=== PATIENT | male | born 1960 | race Caucasian/White ===

== ENCOUNTER 2017-10-08 02:39 | Inpatient (IN) | payer MEDICAID ==
[2017-10-08] VITALS (13 sets, daily range): BP systolic 111–142; BP diastolic 65–88
[~2017-10-08] VITALS: Ht 170.2 cm; Wt 109.9 kg
[2017-10-08] MEDS ORDERED: morphine 2 MG/ML inj. syringe IV ONE (03:15)
[2017-10-08] MEDS ORDERED: aspirin 81mg tab.chew PO ONE (03:15)
[2017-10-08] MEDS ORDERED: ondansetron/PF 4mg/2ml inj IV ONE (03:15)
[2017-10-08 03:20] LABS: BASOPHILS % (AUTO) 0.4 % (0-1); EOSINOPHILS # (AUTO) 0.1 X10'3 (0-0.9); EOSINOPHILS % (AUTO) 0.7 % (0-6); HEMATOCRIT 48.8 % (42.0-52.0); HEMOGLOBIN 17.1 g/dl (14.0-17.9); LYMPHOCYTES # (AUTO) 1.6 X10'3 (1.1-4.8); LYMPHOCYTES % (AUTO) 22.4 % (21-51); MEAN CORPUSCULAR HEMOGLOBIN 33.1 PG (27.0-31.0); MEAN CORPUSCULAR VOLUME 94.6 FL (78-98); MEAN PLATELET VOLUME 7.5 FL (7.4-10.4); MONOCYTES # (AUTO) 0.6 X10'3 (0-0.9); MONOCYTES % (AUTO) 7.8 % (2-12); NEUTROPHILS # (AUTO) 4.9 X10'3 (1.8-7.7); NEUTROPHILS % (AUTO) 68.7 % (42-75); PLATELET COUNT 207 X10'3 (140-440); RED BLOOD COUNT 5.16 X10'6 (4.70-6.10); RED CELL DISTRIBUTION WIDTH 13.1 % (11.5-14.5); WHITE BLOOD COUNT 7.1 X10'3 (4.5-11.0)
[2017-10-08 03:37] LABS: D-DIMER 0.24 MG/L FEU (0-0.50)
[2017-10-08] MEDS: nitroGLYCERIN 0.4mg SUBLingual tab SL PRN ×2 (03:41→03:58)
[2017-10-08 03:42] LABS: ALANINE AMINOTRANSFERASE 43 U/L (12-78); ALBUMIN 4.1 G/DL (3.4-5.0); ALBUMIN/GLOBULIN RATIO 1.1 (1.1-1.5); ALKALINE PHOSPHATASE 49 IU/L (46-116); ANION GAP 14 (8-16); BILIRUBIN,TOTAL 0.6 MG/DL (0.1-1.0); BLOOD UREA NITROGEN 14 MG/DL (7-18); BUN/CREATININE RATIO 15.6 (5.4-32.0); CHLORIDE 102 MMOL/L (99-107); MAGNESIUM 1.9 MG/DL (1.5-2.4); SODIUM 136 MMOL/L (135-145); TOTAL CARBON DIOXIDE 19.7 MMOL/L (24-32); TOTAL PROTEIN 7.8 G/DL (6.4-8.2); eGFR 87 ML/MIN
[2017-10-08 03:55] LABS: GLUCOSE 130 MG/DL (70-104)
[2017-10-08 03:57] LABS: POTASSIUM 3.9 MMOL/L (3.5-5.1)
[2017-10-08 03:58] LABS: ASPARTATE AMINO TRANSFERASE 28 U/L (10-37)
[2017-10-08] MEDS ORDERED: heparin 10,000 units/1 ML INJ IV ONE (04:25)
[2017-10-08 05:42] LABS: PARTIAL THROMBOPLASTIN TIME 25 SECONDS (22-32)
[2017-10-08] MEDS ORDERED: NO HOME MEDS (05:57)
[2017-10-08] MEDS ORDERED: normal saline 1000ml 1,000 ML IV SCH (06:24)
[2017-10-08] MEDS ORDERED: ondansetron/PF 4mg/2ml inj IV PRN ×2 (06:25→19:50)
[2017-10-08] MEDS ORDERED: morphine 2 MG/ML inj. syringe IV PRN ×2 (06:25)
[2017-10-08] MEDS ORDERED: LIDOcaine Viscous 15ml cup MM ONE (07:40)
[2017-10-08] MEDS ORDERED: diphenhydrAMINE 25 MG/10 ML UD oral solution PO ONE (07:40)
[2017-10-08] MEDS ORDERED: mag hydrox/Alum hydrox/simeth 30ml oral suspension PO ONE (07:45)
[2017-10-08 09:50] LABS: CHOL/HDL RATIO 3.9 (0.00-4.99); CHOLESTEROL 238 MG/DL (0-200); HDL CHOLESTEROL 61 MG/DL (35-60); LDL CHOLESTEROL 158 MG/DL (50-100); TRIGLYCERIDES 101 MG/DL (20-135)
[2017-10-08] MEDS ORDERED: nitroGLYCERIN 0.4mg/hour patch TD ONE (10:10)
[2017-10-08] MEDS: atorvastatin 20mg tablet PO SCH (10:23)
[2017-10-08] MEDS: metoprolol tartrate 50mg tablet PO SCH ×2 (10:23→20:06)
[2017-10-08] MEDS: tirofiban 5mg in NS 100mL 100 ML IV SCH ×2 (10:23→14:21)
[2017-10-08] MEDS ORDERED: heparin 10,000 units/1 ML INJ IV SCH (13:00)
[2017-10-08] MEDS ORDERED: FLU VACC QS2017-18 36MOS UP/PF 60 MCG/0.5 ML SYRINGE IMVAC ONE (13:00)
[2017-10-08] MEDS ORDERED: heparin 10,000 units/1 ML INJ IV PRN (13:15)
[2017-10-08 17:49] LABS: BASOPHILS % (AUTO) 0.3 % (0-1); EOSINOPHILS % (AUTO) 0.1 % (0-6); HEMATOCRIT 45.3 % (42.0-52.0); HEMOGLOBIN 15.8 g/dl (14.0-17.9); LYMPHOCYTES # (AUTO) 1.5 X10'3 (1.1-4.8); LYMPHOCYTES % (AUTO) 12.8 % (21-51); MEAN CORPUSCULAR HEMOGLOBIN 33.1 PG (27.0-31.0); MEAN CORPUSCULAR HGB CONC 34.9 % (33.0-36.5); MEAN CORPUSCULAR VOLUME 94.9 FL (78-98); MEAN PLATELET VOLUME 7.4 FL (7.4-10.4); MONOCYTES # (AUTO) 0.9 X10'3 (0-0.9); MONOCYTES % (AUTO) 7.2 % (2-12); NEUTROPHILS # (AUTO) 9.5 X10'3 (1.8-7.7); NEUTROPHILS % (AUTO) 79.6 % (42-75); PLATELET COUNT 196 X10'3 (140-440); RED BLOOD COUNT 4.77 X10'6 (4.70-6.10); RED CELL DISTRIBUTION WIDTH 13.2 % (11.5-14.5); WHITE BLOOD COUNT 11.9 X10'3 (4.5-11.0)
[2017-10-08] MEDS ORDERED: LIDOcaine 1%/PF (10mg/ml) 5ml vial ONE (18:20)
[2017-10-08] MEDS ORDERED: iohexol 350MG/ML 100ml bottle IV ONE (18:20)
[2017-10-08] MEDS ORDERED: midazolam 2 mg/2 ml injection ONE (18:46)
[2017-10-08] MEDS ORDERED: heparin 1,000unit/ml 10ml vial 10 ML ONE (18:55)
[2017-10-08] MEDS ORDERED: iohexol 350 MG/ML 50ML vial IV ONE (18:59)
[2017-10-08] MEDS ORDERED: ticagrelor 90mg tablet ONE (19:07)
[2017-10-08] MEDS ORDERED: OXAZEpam 15mg capsule PO PRN (19:50)
[2017-10-08] MEDS ORDERED: nitroGLYCERIN 0.4mg SUBLingual tab SL PRN (19:50)
[2017-10-08] MEDS ORDERED: proCHLORperazine 10 MG/2 ml inj IV PRN (19:50)
[2017-10-08] MEDS: ticagrelor 90mg tablet PO SCH (20:00)
[2017-10-09] VITALS (8 sets, daily range): BP systolic 104–124; BP diastolic 65–72
[2017-10-09 05:57] LABS: CHOLESTEROL 213 MG/DL (0-200); HDL CHOLESTEROL 53 MG/DL (35-60); LDL CHOLESTEROL 133 MG/DL (50-100); TRIGLYCERIDES 166 MG/DL (20-135)
[2017-10-09] MEDS: atorvastatin 20mg tablet PO SCH (08:10)
[2017-10-09] MEDS: metoprolol tartrate 50mg tablet PO SCH ×2 (08:12→15:10)
[2017-10-09] MEDS: ticagrelor 90mg tablet PO SCH (08:13)
[2017-10-09] MEDS ORDERED: aspirin 81mg tab.chew PO SCH (08:30)
[2017-10-09] MEDS ORDERED: TICA90TA PO (12:43)
[2017-10-09] MEDS ORDERED: METO50TA16 PO (12:43)
[2017-10-09] MEDS ORDERED: ATOR20TA66 PO (12:43)
[2017-10-09] MEDS ORDERED: ASPI-1265 PO (12:43)
[2017-10-09] MEDS ORDERED: NITR0.4T51 SL (12:43)
== END 2017-10-09 17:10 | disposition home or self-care (01) | DRG 174 ==
LOC: ER 02:40 → ED HOLD 06:24 → PCU 3S 08:10
PROVIDERS: ADMIT Internal Medicine; ATTEND Internal Medicine
PROC: 027034Z Dilation of Coronary Artery, One Artery with Drug-eluting Intraluminal Device, Percutaneous Approach (ICD-10-PCS; principal; 2017-10-08)
PROC: 4A023N7 Measurement of Cardiac Sampling and Pressure, Left Heart, Percutaneous Approach (ICD-10-PCS; 2017-10-08)
PROC: B2111ZZ Fluoroscopy of Multiple Coronary Arteries using Low Osmolar Contrast (ICD-10-PCS; 2017-10-08)
PROC: B2151ZZ Fluoroscopy of Left Heart using Low Osmolar Contrast (ICD-10-PCS; 2017-10-08)
DX: I21.4 Non-ST elevation (NSTEMI) myocardial infarction (principal); I10 Essential (primary) hypertension; E66.8 Other obesity; E78.5 Hyperlipidemia, unspecified; Z79.82 Long term (current) use of aspirin; Z79.899 Other long term (current) drug therapy; Z82.0 Family history of epilepsy and other diseases of the nervous system; Z82.49 Family history of ischemic heart disease and other diseases of the circulatory system; Z68.37 Body mass index [BMI] 37.0-37.9, adult
CPT/HCPCS: 36415; 71045; 80053; 80061; 83735; 83880; 84484; 85025; 85379; 85730; 87070; 93005; 93306; 93458; 96374; 99152; 99153; 99291; A4620; A6257; C1725; C1760; C1769; C1874; C9600; J1644; J2001; J2250; J2270; J2405; J3246; J7030; Q0163; Q9967

== ENCOUNTER 2017-12-04 10:19 | Emergency (ER) | payer MEDICAID ==
[~2017-12-04] VITALS: Ht 170.2 cm; Wt 90.0 kg
[~2017-12-04 10:19] MED LIST: ASPI-1265 PO; ATOR20TA66 PO; METO50TA16 PO; NITR0.4T51 SL; NO HOME MEDS; TICA90TA PO
[2017-12-04 10:24] VITALS: BP 108/85
[2017-12-04] MEDS ORDERED: AZIT250T PO (10:52)
== END 2017-12-04 11:30 | disposition home or self-care (01) ==
LOC: ER 10:19
DX: J20.9 Acute bronchitis, unspecified (principal); Z79.899 Other long term (current) drug therapy
CPT/HCPCS: 71045; 99283